=== PATIENT | female | born 1995 | race Two or more races ===

== ENCOUNTER 2024-04-07 15:53 | Emergency (ER) | payer OTHER ==
[~2024-04-07] VITALS: Ht 165.1 cm; Wt 49.9 kg
[2024-04-07] MEDS ORDERED: ONDANSETRON HCL 2 MG/ML VIAL IM ONE (16:45)
[2024-04-07] MEDS ORDERED: FAMOtidine 10 MG/ML (4ML VIAL) IV PUSH ONE (16:45)
[2024-04-07] MEDS ORDERED: BUTALB/ACETAMINOPHEN/CAFFEINE 1 TAB TABLET PO ONE ×2 (16:45→18:09)
[2024-04-07] MEDS ORDERED: FAMOTIDINE/PF 20 MG/2 ML VIAL ONE (18:09)
[2024-04-07] MEDS ORDERED: ONDANSETRON HCL 2 MG/ML VIAL ONE (18:09)
[2024-04-07] MEDS ORDERED: BUTALB-ACETAMI1 EACH PO (19:19)
== END 2024-04-07 19:23 | disposition home or self-care (01) ==
LOC: ER 15:53
DX: G43.809 Other migraine, not intractable, without status migrainosus (principal); Z20.822 Contact with and (suspected) exposure to COVID-19